=== PATIENT | male | born 1990 | race Two or more races ===

== ENCOUNTER 2017-04-17 12:12 | Emergency (ER) | payer SELFPAY ==
[~2017-04-17] VITALS: Ht 167.6 cm; Wt 79.4 kg
[2017-04-17 12:20] VITALS: BP 125/88
[2017-04-17] MEDS ORDERED: LIDOCAINE 1% HCL (LOCAL ANESTH.) INJ 20ML MDV ONE (13:50)
[2017-04-17] MEDS ORDERED: LIDOCAINE 1% HCL (LOCAL ANESTH.) INJ 20ML MDV IN ONE (14:00)
== END 2017-04-17 14:24 | disposition home or self-care (01) ==
LOC: ER 12:12
DX: S62.637A Displaced fracture of distal phalanx of left little finger, initial encounter for closed fracture (principal); S61.217A Laceration without foreign body of left little finger without damage to nail, initial encounter; W45.8XXA Other foreign body or object entering through skin, initial encounter; Y93.89 Activity, other specified; Y92.89 Other specified places as the place of occurrence of the external cause; Y99.8 Other external cause status
CPT/HCPCS: 12002; 73140; 99284; J2001